=== PATIENT | female | born 1975 | race Caucasian/White ===

== ENCOUNTER 2019-12-09 20:23 | Emergency (ER) | payer BC ==
--- NOTE | 2019-12-09 21:51 | ER Document Report ---
ED General - General Chief Complaint: Flu Symptoms Stated Complaint: FLU LIKE SYMPTOMS Time Seen by Provider: 12/09/19 20:42 Primary Care Provider: SENG KINNEY PA-C [Primary Care Provider] - Follow up as needed Mode of Arrival: Ambulatory Information source: Patient Notes: This 44-year-old woman presents to the emergency department with 1 day history of body aches and pains with associated cough congestion and left earache. She denies exposure to coronavirus infection. She also complains of fatigue and chills. She denies nausea, vomiting, diarrhea or change in taste or smell. TRAVEL OUTSIDE OF THE [place] IN LAST 30 DAYS: No Past Medical History - Social History Smoking Status: Current Every Day Smoker Family History: Reviewed & Not Pertinent Patient has homicidal ideation: No Review of Systems - Review of Systems Notes: Constitutional: +fever, + general fatigue. HENT: Negative for sore throat.+ Left ear pain Eyes: Negative for visual changes. Cardiovascular: + Cough Respiratory: Negative for shortness of breath. Gastrointestinal: Negative for abdominal pain, vomiting or diarrhea. Genitourinary: Negative for dysuria. Musculoskeletal: Negative for back pain. Skin: Negative for rash. Neurological: Negative for headaches, weakness or numbness. 10 point ROS negative except as marked above and in HPI. Physical Exam - Vital signs Vitals: Temp 99.9 F 12/09/19 20:23 - Notes Notes: PHYSICAL EXAMINATION: Physical Exam: General: Well-nourished well-developed 44-year-old female in no acute distress HEENT: NC/AT, pupils equal round and reactive to light, MM moist,nares clear, TM left with swelling and bulging, discoloration, right side with + air-fluid level no erythema. Oropharynx clear, airway patent Neck: supple, no adenopathy, no masses. Good range of motion Lungs: clear, no wheezing, no rales no rhonchi CVS: Regular rate and rhythm no murmur gallop or rub Abdomen: Soft, active, nontender, no masses, no hepatosplenomegaly Ext: No edema, clubbing or cyanosis. Neuro: Alert and responsive, moving all 4 extremities on command, cranial nerves intact, no focal findings Skin: Intact no open lesions, no rash PSYCH: Normal mood, normal affect. Course - Re-evaluation Re-evalutation: 12/09/19 22:27 Discussed the findings of negative flu test, negative strep and a normal chest x-ray with the patient. Patient presents with low-grade temperature, cough and body aches. Evaluation for influenza and strep are negative, urinalysis was also noted to be negative. Given her presentation, coronavirus screening test is being performed. I have instructed the patient that she will need to self isolate until she received a report of the test results. The patient acknowledges that she has been tested for COVID-19, and will self isolate at home until she receives results. She is instructed to avoid anti-inflammatory medications. May use Tylenol for fever, aches and pains. She is also instructed to return to the hospital if her symptoms are worsening or development of shortness of breath. Given the left ear pain and signs of otitis media the patient has been given amoxicillin 500 mg p.o. twice daily, instructed to use Tylenol for pain and to push fluids. Patient acknowledges understanding of this plan and is in agreement. - Vital Signs Vital signs: Temp Pulse Resp BP Pulse Ox 98.8 F 102 H 16 124/54 L 97 12/09/19 23:12 12/09/19 23:12 12/09/19 23:12 12/09/19 23:12 12/09/19 23:12 - Laboratory Laboratory results interpreted by me: I have reviewed laboratory data and used this information for the treatment decisions regarding the patient. - Diagnostic Test Radiology reviewed: Image reviewed, Reports reviewed Discharge - Discharge Clinical Impression: Suspected 2019 novel coronavirus infection Left otitis media Qualifiers: Otitis media type: unspecified Qualified Code(s): H66.92 - Otitis media, unspecified, left ear Condition: Good Disposition: HOME, SELF-CARE Instructions: Acetaminophen, Otitis Media ([facility]) Additional Instructions: You were seen with fever and upper respiratory symptoms.Testing for influenza and strep were negative, chest x-ray is clear. Given the pandemic and coronavirus concerns, your were made a person of interest and a swab was collected and will be sent for COVID-19 evaluation. You will need to self quarantine until you get the results. Avoid anti-inflammatory medications, you may use Tylenol for fever, aches and pains. Please return to the hospital if her symptoms are worsening or development of shortness of breath. You are given a prescription for amoxicillin for treatment of left sided ear infection. You may use Tylenol for pain, push fluids and follow-up with your primary care doctor as needed. If your symptoms are worsening or if you have other concerns you may return to the emergency department for further evaluation and treatment. HOME CARE INSTRUCTIONS & INFORMATION: Thank you for choosing us for your medical needs. We hope you're satisfied with the care you received. After you leave, you must properly care for your problem and, at the same time, observe its progress. Any condition can change. Some illnesses can change rapidly over hours or days. If your condition worsens, return to the Emergency Department or see your physician promptly. ABOUT YOUR X-RAYS AND EKG'S: If you had an EKG or X-rays taken, they have been read by the Emergency Physician. The X-rays and EKG's will also be read by a Radiologist or Fire Captain within 24 hours. If discrepancies are noted, you will be notified by telephone. Please be certain the ED has a correct telephone number & address where you can be reached. Also, realize that some fractures or abnormalities do not show up on initial X-rays. If your symptoms continue, see your physician. ABOUT YOUR LABORATORY TEST: If you had laboratory tests, the results have been reviewed by the Emergency Physician. Some test results (for example cultures) may not be available for several days. You will be contacted if any test result shows you need additional treatment. Please be certain the ED has a correct telephone number and address where you can be reached. ABOUT YOUR MEDICATIONS: You will receive instructions on how to take your medicine on the prescription label you receive. Additional information may be provided by the Pharmacy. If you have questions afterwards, call the ED for clarification or further instructions. Some prescribed medications may cause drowsiness. Do not perform tasks such as driving a car or operating machinery without consulting your Pharmacist. If you feel you need a refill of pain medication, your condition will need re-evaluation. Please do not call for a refill of any medication. ABOUT YOUR SIGNATURE: Signature of this document acknowledges to followin. Understanding that you received emergency treatment and that you may be released before al medical problems are known or treated. Please be certain the ED has a correct phone number & address where you can be reached. 2. Acknowledgement that you will arrange for follow-up care as recommended. 3. Authorization for the Emergency Physician to provide information to your follow-up Physician in order to maximize your care. AT ANY TIME, IF YOUR SYMPTOMS CHANGE SIGNIFICANTLY OR WORSEN OR YOU DEVELOP NEW SYMPTOMS, RETURN TO THE EMERGENCY DEPARTMENT IMMEDIATELY FOR RE-EVALUATION. OUR GOAL IS TO PROVIDE EXCELLENT MEDICAL CARE! WE HOPE THAT WE HAVE MET YOUR EXPECTATIONS DURING YOUR EMERGENCY DEPARTMENT VISIT AND THAT YOU FEEL YOU HAVE RECEIVED EXCELLENT CARE! Prescriptions: Amoxicillin 1 tab PO TID #30 tab Forms: Return to Work Referrals: SENG KINNEY PA-C [Primary Care Provider] - Follow up as needed
--- NOTE | 2019-12-09 21:55 | RADIOLOGY REPORT (SQ) ---
CLINICAL INDICATION: Cough. TECHNIQUE: A single portable AP view was obtained of the chest at 2132 hours. COMPARISON: None. FINDINGS: The cardiomediastinal silhouette is top normal. The lungs are grossly clear. No evidence of effusion or pneumothorax. The visualized bones are unremarkable. IMPRESSION: No evidence of active intrathoracic disease.
[2019-12-09 22:06] LABS: A TYPE INFLUENZA AG NEGATIVE (NEGATIVE); B INFLUENZA AG NEGATIVE (NEGATIVE)
[2019-12-09] MEDS ORDERED: ACETAMINOPHEN 325 MG TABLET PO ONE (22:24)
[2019-12-09 23:12] VITALS: BP 124/54
== END 2019-12-09 23:15 | disposition home or self-care (01) ==
LOC: ER 20:23
DX: U07.1 COVID-19 (principal); H66.92 Otitis media, unspecified, left ear; M79.10 Myalgia, unspecified site; R05 Cough; R53.83 Other fatigue; R50.9 Fever, unspecified; F17.200 Nicotine dependence, unspecified, uncomplicated
CPT/HCPCS: 71045; 87070; 87635; 87804; 87880; 99283

== ENCOUNTER → 2020-01-12 | Outpatient (CLI) | payer BC | LOC: OD 11:44 | PROVIDERS: ATTEND Otolaryngology | DX: J30.9 Allergic rhinitis, unspecified (principal) | CPT/HCPCS: 36415; 82785; 86003 ==

== ENCOUNTER → 2020-03-01 | Outpatient (CLI) | payer BC ==
[2020-03-01 12:08] VITALS: BP 133/64
--- NOTE | 2020-03-01 12:08 | ER [facility] ASSESSMENT REPORT ---
Intake - In the Last 14 days Have you traveled outside [place]?: No Have you been in close contact with someone CONFIRMED: No Worked in Healthcare?: No - Symptoms Subjective Fever([place] feverish): Yes Chills: No Muscule Aches: Yes Runny Nose: Yes Sore Throat: No Cough (New or worsening chronic cough): Yes Shortness of breath: Yes Nausea or Vomiting: Yes Headache: Yes Abdominal Pain: Yes Diarrhea(3 or more loose stools in last 24 hours): Yes - Do you have any of the following Chronic lung disease: Asthma or emphysema or COPD: No Cystic Fibrosis: No Diabetes: No High Blood Pressure: No Cardiovascular Disease: No Chronic Kidney Disease: No Chronic Liver Disease: No Chronic blood disorder like Sickle Cell Disease: No Weak immune system due to disease or medication: No Neurologic condition that limits movement: No Developmental delay - Moderate to Severe: No Recent (within past 2 weeks) or current : No Morbid Obesity (>100 pounds over ideal weight): No - Objective Temperature: 97.2 F Pulse Rate: 100 Respiratory Rate: 12 Blood Pressure: 133/64 O2 Sat by Pulse Oximetry: 96 Objective: Given above, testing performed: covid, flu Disposition: Home; Selfcare General - General Chief Complaint: Flu Symptoms Time Seen by Provider: 03/01/20 11:50 Mode of Arrival: Ambulatory Information source: Patient - HPI Notes: 44-year-old female presents [facility] for COVID-19 testing. Patient reports no known exposure with COVID positive individual. Patient did test positive for COVID-19 back in December 2019. She is complaining of mild fever, chills, myalgia, rhinorrhea, cough productive of yellow phlegm, mild dyspnea only with exertion, nausea, headache, abdominal cramping and diarrhea. Symptom onset 3 days ago. She denies chills and sore throat. - Related Data Home Medications: Gabapentin Past Medical History - General Information source: Patient - Social History Smoking Status: Current Every Day Smoker Family History: Reviewed & Not Pertinent - Past Medical History Cardiac Medical History: Reports: None Pulmonary Medical History: Reports: None EENT Medical History: Reports: None Neurological Medical History: Reports: None Endocrine Medical History: Reports: None Renal/ Medical History: Reports: None Malignancy Medical History: Reports: None GI Medical History: Reports: None Musculoskeletal Medical History: Reports Hx Fibromyalgia Skin Medical History: Reports None Psychiatric Medical History: Reports: None Traumatic Medical History: Reports: None Infectious Medical History: Reports: None Past Surgical History: Reports: None Physical Exam - General General appearance: Appears well, Alert In distress: None Notes: PHYSICAL EXAMINATION: GENERAL: Well-appearing and in no acute distress. HEAD: Atraumatic, normocephalic. EYES: sclera anicteric, conjunctiva are normal. ENT: nares patent. Moist mucous membranes. NECK: Normal range of motion, supple without lymphadenopathy. LUNGS: No increased work of breathing. Lung sounds CTAB and equal. No wheezes rales or rhonchi. HEART: Regular rate and rhythm without murmurs. ABDOMEN: Soft, nontender, normal bowel sounds, no guarding. EXTREMITIES: Normal range of motion, no pitting edema. No cyanosis. NEUROLOGICAL: A&O x 3. Normal speech. PSYCH: Normal mood, normal affect. SKIN: Warm, Dry, normal turgor, no rashes or lesions noted Diagnostic Results Laboratory Results: Flu and COVID pending Patient Education/Counseling Counseling/Education: Patient presents with symptoms associated with possible Covid 19 infection. Patient does not have emergency worrying symptoms such as difficulty breathing, shortness of breath, chest pain, pressure, confusion or cyanosis. Patient appears suitable for discharge as vital signs are stable and patient is nontoxic in appearance. Good return precautions have been discussed with patient, patient verbalized understanding and is agreeable with discharge plan of care at this time. Guidance for worsening S/SX: As a person under investigation for Covid 19, the [place] department of Health and Human Services, division of public health advises you to adhere to the following guidance until your test results are reported to you. If your test result is positive, you will receive additional information from your provider and your local health department at that time. Remain at home until you are cleared by the health provider or public health authorities. Keep a log of visitors to your home, notify any visitors to your home of your isolation status. If you plan to move to a new address or leave the county, notify the local health department in your County. Call your doctor or seek care if you have an urgent medical need. Before seekin g medical care, call ahead to get instructions from the provider before arriving at the medical office clinic or hospital. Notify them that you are being tested for the virus that causes Covid 19 so that arrangements can be made, as necessary, to prevent transmission to others in the healthcare setting. Next, notify the local health department in your county. If a medical emergency arises and you need to call 911, inform the first responders that you are being tested for the virus that causes Covid 19. Next, notify the local health department in your county. [facility] Discharge - Discharge Clinical Impression: Encounter for screening laboratory testing for COVID-19 virus Upper respiratory infection Qualifiers: URI type: unspecified URI Qualified Code(s): J06.9 - Acute upper respiratory infection, unspecified Condition: Good Disposition: Home; Selfcare
[2020-03-01 13:01] LABS: A TYPE INFLUENZA AG NEGATIVE (NEGATIVE); B INFLUENZA AG NEGATIVE (NEGATIVE)
== END ==
LOC: RDC 11:26
PROVIDERS: ATTEND Registered Nurse
DX: Z20.828 Contact with and (suspected) exposure to other viral communicable diseases (principal); J06.9 Acute upper respiratory infection, unspecified; R50.9 Fever, unspecified; R05 Cough; R06.00 Dyspnea, unspecified; J34.89 Other specified disorders of nose and nasal sinuses; R09.89 Other specified symptoms and signs involving the circulatory and respiratory systems; M79.10 Myalgia, unspecified site; R11.0 Nausea; R51 Headache; R10.9 Unspecified abdominal pain; R19.7 Diarrhea, unspecified; F17.200 Nicotine dependence, unspecified, uncomplicated; Z86.19 Personal history of other infectious and parasitic diseases
CPT/HCPCS: 87635; 87804; C9803; 99201; 99211